=== PATIENT | female | born 1960 | race Two or more races ===

== ENCOUNTER 2020-07-20 12:09 | Emergency (ER) | payer BC ==
[~2020-07-20] VITALS: Ht 157.5 cm; Wt 56.7 kg
[2020-07-20] MEDS ORDERED: LIDOCAINE HCL 1% 20 ML VIAL TP ONE (12:45)
[2020-07-20] MEDS ORDERED: TDAP DIPH,PERTUSS,TET VAC/PF 0.5 ML DISP.SYRIN IM ONE ×2 (12:45→12:49)
--- NOTE | 2020-07-20 13:08 | NUR ---
Dressing applied to Lt Index finger per MD order.
[2020-07-20 13:09] VITALS: BP 112/78
--- NOTE | 2020-07-20 13:09 | NUR ---
Patient discharged to home in stable condition. Written and verbal after care instructions given. Patient verbalizes understanding of instructions. Stressed follow up or return to ER for worsening s/s.
== END 2020-07-20 13:10 | disposition home or self-care (01) ==
LOC: ER 12:23
DX: S61.211A Laceration without foreign body of left index finger without damage to nail, initial encounter (principal); W31.2XXA Contact with powered woodworking and forming machines, initial encounter; Y92.89 Other specified places as the place of occurrence of the external cause; F17.200 Nicotine dependence, unspecified, uncomplicated
CPT/HCPCS: 12001; 90471; 90715; 99283; J3490; A4217; A4663